=== PATIENT | female | born 1980 | race Caucasian/White ===

== ENCOUNTER 2023-11-09 09:23 | Outpatient (CLI) | payer BC, SELFPAY ==
--- NOTE | 2023-11-09 10:22 | W.ANESCHARGE ---
Anesthesia Charges Start Date/Time Anesthesia Start Date: 11/09/23 Anesthesia Start Time: 10:36 Stop Date/Time Anesthesia Stop Date: 11/09/23 Anesthesia Stop Time: 11:04
--- NOTE | 2023-11-09 11:09 | W.ANESCHARGE ---
Anesthesia Charges Start Date/Time Anesthesia Start Date: 11/09/23 Anesthesia Start Time: 10:36 Stop Date/Time Anesthesia Stop Date: 11/09/23 Anesthesia Stop Time: 11:04
== END 2023-11-09 09:24 | disposition home or self-care (01) ==
LOC: OP CLINIC 09:27
PROVIDERS: PCP Family Medicine; Visit Provider Internal Medicine Gastroenterology
DX: K63.5 Polyp of colon (principal); Z86.010 Personal history of colon polyps
CPT/HCPCS: 45385; 811; 88305; J2704